=== PATIENT | male | born 1970 | race Caucasian/White ===

== ENCOUNTER 2022-09-27 17:31 | Emergency (ER) | payer BC ==
[~2022-09-27] VITALS: Ht 170.2 cm; Wt 86.4 kg
[2022-09-27 18:01] VITALS: TEMP 98.4
[2022-09-27 20:54] LABS: BILIRUBIN,URINE NEGATIVE (Neg); CLARITY,URINE SLIGHTLY CLOUDY (Clear); COLOR,URINE YELLOW (Yellow); GLUCOSE, URINE NEGATIVE (Neg); KETONES,URINE NEGATIVE (Neg); LEUKOCYTE ESTERASE ,URINE NEGATIVE (Neg); NITRITES, URINE NEGATIVE (Neg); OCCULT BLOOD,URINE NEGATIVE (Neg); PH,URINE 5.5 (4.8-8.0); PROTEIN,URINE NEGATIVE (Neg); UROBILINOGEN,URINE 0.2 E.U/dL (0.2-1.0)
[2022-09-27 21:00] LABS: UA COLLECTION TYPE CLN CATCH MIDSTREAM
[2022-09-27 21:01] LABS: HYALINE CASTS 0-3 /LPF (NEGATIVE); MUCUS STRANDS MODERATE /LPF (Neg); SQUAMOUS EPITHELIAL CELL,UR FEW /LPF (FEW)
[2022-09-27 21:02] LABS: BACTERIA,URINE NONE SEEN /HPF (Neg); RBC,URINE 0-2 /HPF (0-2); WBC,URINE 0-4 /HPF (0-4)
[2022-09-27 22:20] VITALS: BP 138/93; PULSE 61; RESP 15; O2SAT 97
== END 2022-09-27 22:26 | disposition home or self-care (01) ==
LOC: ER 17:34
DX: N50.811 Right testicular pain (principal); E78.00 Pure hypercholesterolemia, unspecified; I10 Essential (primary) hypertension
CPT/HCPCS: 74176; 76870; 81001; 93976; 99284